=== PATIENT | female | born 1985 | race Caucasian/White ===

== ENCOUNTER 2017-04-01 04:26 | Inpatient (IN) | payer OTHER ==
[~2017-04-01] VITALS: Ht 165.1 cm; Wt 78.0 kg
[2017-04-01 04:37] VITALS: BP 136/87
[2017-04-01] MEDS ORDERED: LACTATED RINGERS 1,000 ML IVBOLUS ONE (05:00)
[2017-04-01] MEDS: OXYTOCIN 30U/ 0.9% NaCL 500ML 500 ML IV SCH ×4 (06:03→17:16)
[2017-04-01] MEDS ORDERED: SODIUM CITRATE/CITRIC ACID 30 ML UDC ONE (06:13)
[2017-04-01] MEDS ORDERED: METOCLOPRAMIDE 5 MG/ML, 2ML ONE (06:13)
[2017-04-01] MEDS ORDERED: NEWBORN KIT ONE (06:13)
[2017-04-01] MEDS ORDERED: METOCLOPRAMIDE 5 MG/ML, 2ML IV ONE (06:30)
[2017-04-01] MEDS ORDERED: SODIUM CITRATE/CITRIC ACID 30 ML UDC PO ONE (06:30)
[2017-04-01] MEDS: LACTATED RINGERS 1,000 ML IV SCH ×8 (07:12→20:02)
[2017-04-01] MEDS ORDERED: HYDROmorphone 2 MG/ML, 1ML ONE (07:17)
[2017-04-01] MEDS ORDERED: CEFAZOLIN 1,000 MG ONE (07:19)
[2017-04-01] MEDS ORDERED: morphine SULFATE 10 MG/ML, 1ML IVPush PRN (07:30)
[2017-04-01] MEDS ORDERED: MISOPROSTOL 200 MCG TABLET PR PRN (07:30)
[2017-04-01] MEDS ORDERED: RHOGAM FROM BLOOD BANK 1 NOTE EA IM/IV ONE (07:30)
[2017-04-01] MEDS ORDERED: OXYcodone IR 5MG TABLET PO PRN (07:30)
[2017-04-01] MEDS ORDERED: IBUPROFEN 600 MG TABLET PO PRN (07:30)
[2017-04-01] MEDS ORDERED: MEASLES,MUMPS&RUBELLA VACC/PF 0.5 ML SQ-VACC PRN (07:30)
[2017-04-01] MEDS ORDERED: DIPH,PERTUSS(ACELL),TET VAC/PF NC IM-VACC PRN (07:30)
[2017-04-01] MEDS ORDERED: ONDANSETRON 2MG/ML, 2ML IV PRN (07:30)
[2017-04-01] MEDS ORDERED: CALCIUM CARBONATE 500 MG TAB.CHEW PO PRN (07:30)
[2017-04-01] MEDS ORDERED: KETOROLAC 30 MG/1 ML ONE (08:36)
[2017-04-01] MEDS: KETOROLAC 30 MG/1 ML IV SCH ×3 (08:51→22:52)
[2017-04-01] MEDS ORDERED: OXYTOCIN 30U/ 0.9% NaCL 500ML 500 ML ONE (08:56)
[2017-04-01 10:50] VITALS: BP 113/61
[2017-04-01 14:31] VITALS: BP 105/56
[2017-04-01 20:10] VITALS: BP 108/50
[2017-04-02 00:25] VITALS: BP 103/48
[2017-04-02] MEDS: OXYTOCIN 30U/ 0.9% NaCL 500ML 500 ML IV SCH ×3 (02:03→22:03)
[2017-04-02] MEDS: KETOROLAC 30 MG/1 ML IV SCH ×4 (05:23→23:04)
[2017-04-02 07:45] VITALS: BP 103/53
[2017-04-02] MEDS: PRENATAL VIT/IRON/FA 1 EACH TABLET PO SCH ×2 (09:00→10:38)
[2017-04-02] MEDS: DOCUSATE 100 MG CAPSULE PO PRN ×2 (10:38→23:05)
[2017-04-02 20:30] VITALS: BP 114/70
[2017-04-03] MEDS: KETOROLAC 30 MG/1 ML IV SCH (04:51)
[2017-04-03 06:33] VITALS: BP 115/71
[2017-04-03] MEDS: OXYTOCIN 30U/ 0.9% NaCL 500ML 500 ML IV SCH ×2 (08:03→18:03)
[2017-04-03] MEDS: PRENATAL VIT/IRON/FA 1 EACH TABLET PO SCH (11:23)
[2017-04-03] MEDS: DOCUSATE 100 MG CAPSULE PO PRN ×2 (11:23→23:45)
[2017-04-03] MEDS: OXYcodone/APAP 5/325MG TABLET PO PRN ×3 (11:23→23:45)
[2017-04-03 21:35] VITALS: BP 113/67
[2017-04-04] MEDS ORDERED: IBUP-1222 PO (02:37)
[2017-04-04] MEDS ORDERED: OXYC-302 PO (02:39)
[2017-04-04] MEDS ORDERED: DOCU-30 PO (02:40)
[2017-04-04] MEDS: OXYTOCIN 30U/ 0.9% NaCL 500ML 500 ML IV SCH (04:03)
[2017-04-04] MEDS: OXYcodone/APAP 5/325MG TABLET PO PRN ×2 (05:59→12:36)
[2017-04-04 10:18] VITALS: BP 123/70
== END 2017-04-04 13:20 | disposition home or self-care (01) | DRG 766 ==
LOC: LDOP 04:26 → LDIP 06:02 → 2NW 10:35
PROVIDERS: ADMIT Obstetrics & Gynecology Gynecology; ATTEND Obstetrics & Gynecology Gynecology
PROC: 10D00Z1 Extraction of Products of Conception, Low, Open Approach (ICD-10-PCS; principal; 2017-04-01)
DX: O34.211 Maternal care for low transverse scar from previous cesarean delivery (principal); Z37.0 Single live birth; Z3A.38 38 weeks gestation of pregnancy; Z88.8 Allergy status to other drugs, medicaments and biological substances
CPT/HCPCS: 36415; 85025; 86850; 86900; J0690; J1170; J1885; J2590; J2765; J7120

== ENCOUNTER 2020-05-08 07:22 | Emergency (ER) | payer OTHER ==
[~2020-05-08] VITALS: Ht 165.1 cm; Wt 71.4 kg
[~2020-05-08 07:22] MED LIST: DOCU-131 PO; IBUP-1222 PO; OXYC-302 PO
[2020-05-08] MEDS ORDERED: SODIUM CHLORIDE 0.9% 1,000ML IVBOLUS ONE (08:00)
[2020-05-08] MEDS ORDERED: SODIUM CHLORIDE FLUSH 10ML SYR IVF ONE (08:00)
[2020-05-08 08:20] LABS: BASOPHILS % (AUTO) 0 % (0-1); EOSINOPHILS # (AUTO) 0.31 x10^3/uL (0-0.4); EOSINOPHILS % (AUTO) 8 % (1-7); LYMPHOCYTES # (AUTO) 0.47 x10^3/uL (1-3.4); LYMPHOCYTES % (AUTO) 13 % (22-44); MD NO; MEAN CORPUSCULAR HEMOGLOBIN 28.6 pg (27.0-34.8); MEAN CORPUSCULAR HGB CONC 32.7 g/dL (32.4-35.8); MEAN CORPUSCULAR VOLUME 87.6 fL (80-100); MEAN PLATELET VOLUME 7.9 fL (7.4-10.4); MONOCYTES % (AUTO) 11 % (2-9); NEUTROPHILS # (AUTO) 2.54 x10^3/uL (1.8-6.8); NEUTROPHILS % (AUTO) 68 % (42-75); PLATELET COUNT 327 x10^3/uL (130-400); RED BLOOD COUNT 4.82 x10^6/uL (3.82-5.3); RED CELL DISTRIBUTION WIDTH 13.8 % (9.6-15.2)
[2020-05-08 08:30] LABS: ALBUMIN 3.9 g/dL (3.4-5.0); ANION GAP 8 mmol/L (5-15); CALCIUM 8.7 mg/dL (8.5-10.1); CHLORIDE 109 mmol/L (98-107); CREATININE 0.85 mg/dL (0.55-1.02)
[2020-05-08 08:32] LABS: CREATINE KINASE, TOTAL 91 U/L (26-192)
[2020-05-08 08:45] LABS: MICROSCOPIC AUTO
--- NOTE | 2020-05-08 09:03 | NUR ---
PT SITTING UP IN BED USING CELL PHONE, NAD NOTED AT THIS TIME. PT DENIES PAIN AT THIS TIME. BLANKET AT FOOT OF BED FOR PT. VSS. AT BEDSIDE. PT CHART UP FOR RECHECK.
[2020-05-08 10:11] VITALS: BP 127/82
== END 2020-05-08 10:13 | disposition home or self-care (01) ==
LOC: ED 08:24
DX: R50.9 Fever, unspecified (principal); Z20.828 Contact with and (suspected) exposure to other viral communicable diseases; T37.0X5A Adverse effect of sulfonamides, initial encounter; R51 Headache; R53.83 Other fatigue; R00.0 Tachycardia, unspecified; Y92.89 Other specified places as the place of occurrence of the external cause
CPT/HCPCS: 36415; 80048; 81001; 82040; 82550; 83605; 84145; 85025; 87040; 87635; 96360; 96361; 99283; J7030

== ENCOUNTER → 2020-11-17 | Outpatient (CLI) | payer OTHER ==
[~2020-11-17] MED LIST changes: +OMNIPAQUE 350 MG/ML, 150 ML BOTTLE ONE; -OXYC-302 PO; +OXYC1TAB14 PO
== END | disposition home or self-care (01) ==
LOC: CFH 13:25
PROVIDERS: ATTEND Urology
DX: N20.0 Calculus of kidney (principal); N13.30 Unspecified hydronephrosis
CPT/HCPCS: 74178; Q9967